=== PATIENT | female | born 1940 | race Caucasian/White ===

== ENCOUNTER 2020-03-29 10:27 | Inpatient (IN) ==
[2020-03-29] MEDS ORDERED: HYDROmorphone 2 MG/1 ML VIAL IV STA ×2 (10:30→11:37)
[2020-03-29] MEDS ORDERED: ONDANSETRON 4 MG/2 ML VIAL IV STA (10:30)
[2020-03-29 11:29] LABS: Basophils % 0.5 % (0.0-0.8); Eosinophils # 0.1 10*3/uL (0.0-0.87); Eosinophils % 1.6 % (0.00-10.9); Hematocrit 40.9 VOL% (35.7-47.0); Hemoglobin 13.3 GM/DL (12.0-16.0); Immature Granulocytes % 0.3 %; Immature Granulocytes Absolute 0.03 #; Lymphocytes # 0.7 10*3/uL (1.4-4.0); Lymphocytes % 7.7 % (21.3-54.2); Mean Corpuscular HGB Conc 32.5 GM/DL (32-36); Mean Corpuscular Volume 93.6 FL (87-102); Mean Platelet Volume 10.7 FL (9.6-12.0); Monocytes % 8.2 % (1.7-12.7); Neutrophils % 81.7 % (38.7-73.9); Platelet Count 127 T/CUMM (130-400); Red Blood Count 4.37 MC/CUMM (3.8-5.5); Red Cell Distribution Width 14.6 % (9.3-17.3); White Blood Count 8.7 T/CUMM (4-12)
[2020-03-29] MEDS ORDERED: DEXTROSE 50% 25 GM/50 ML VIAL IV PRN (11:39)
[2020-03-29] MEDS ORDERED: DOCUSATE SODIUM 100 MG CAPSULE PO PRN (11:39)
[2020-03-29] MEDS ORDERED: ONDANSETRON 4 MG/2 ML VIAL IV PRN (11:39)
[2020-03-29] MEDS ORDERED: GLUCAGON 1 MG VIAL IM PRN (11:39)
[2020-03-29 11:40] LABS: PT Patient Result 10.5 SECS (9.8-11.9); Partial Thromboplastin Time 21.4 SECS (23.9-33.8)
[2020-03-29 11:58] LABS: Albumin 3.3 G/DL (3.4-5.0); Bilirubin,Total 0.5 MG/DL (0.2-1.0); Calcium 8.4 MG/DL (8.5-10.1); Osmolality,Calculated 283.3 MOS/KG (273-304); Potassium 3.4 MMOL/L (3.5-5.1); Total Protein 6.6 G/DL (6.4-8.3)
[2020-03-29] MEDS: PANTOPRAZOLE 40 MG TABLET PO SCH (13:42)
[2020-03-29] MEDS: GABAPENTIN 300 MG CAPSULE PO SCH (20:36)
[2020-03-29] MEDS ORDERED: GABAPENTIN 300 MG CAPSULE PO SCH (21:00)
[2020-03-30 06:08] LABS: Basophils % 0.5 % (0.0-0.8); Eosinophils # 0.1 10*3/uL (0.0-0.87); Eosinophils % 2.2 % (0.00-10.9); Hematocrit 31.7 VOL% (35.7-47.0); Immature Granulocytes % 0.3 %; Immature Granulocytes Absolute 0.02 #; Lymphocytes # 0.9 10*3/uL (1.4-4.0); Mean Corpuscular HGB Conc 33.4 GM/DL (32-36); Mean Corpuscular Volume 93.2 FL (87-102); Mean Platelet Volume 10.1 FL (9.6-12.0); Monocytes % 15.1 % (1.7-12.7); Neutrophils % 67.9 % (38.7-73.9); Red Cell Distribution Width 14.8 % (9.3-17.3); White Blood Count 6.4 T/CUMM (4-12)
[2020-03-30 06:09] LABS: Hemoglobin 10.6 GM/DL (12.0-16.0); Platelet Count 195 T/CUMM (130-400)
[2020-03-30 06:24] LABS: Calcium 8.1 MG/DL (8.5-10.1); Osmolality,Calculated 283.1 MOS/KG (273-304); Potassium 3.4 MMOL/L (3.5-5.1)
[2020-03-30] MEDS: PANTOPRAZOLE 40 MG TABLET PO SCH (08:35)
[2020-03-30] MEDS: LOSARTAN 25 MG TABLET PO SCH (08:35)
[2020-03-30] MEDS ORDERED: fentaNYL 100 MCG/2 ML VIAL ONE (08:44)
[2020-03-30] MEDS ORDERED: DEXMEDETOMIDINE 200 MCG/2 ML VIAL ONE (08:47)
[2020-03-30] MEDS ORDERED: LEVOTHYROXINE 100 MCG TABLET PO SCH (09:00)
[2020-03-30] MEDS ORDERED: LEVOTHYROXINE 112 MCG TABLET PO SCH (09:00)
[2020-03-30] MEDS ORDERED: MIDAZOLAM 2 MG/2 ML VIAL ONE (09:02)
[2020-03-30] MEDS ORDERED: propofoL 200 MG/20 ML VIAL IV ONE (09:18)
[2020-03-30] MEDS ORDERED: LIDOCAINE 2% 5 ML VIAL ONE (09:18)
[2020-03-30] MEDS ORDERED: PHENYLEPHRINE 1 MG/10 ML SYRINGE IV ONE (09:23)
[2020-03-30] MEDS ORDERED: BUPIVACAINE SPINAL 0.75% 2 ML AMP SPINAL ONE (09:45)
[2020-03-30] MEDS ORDERED: ONDANSETRON 4 MG/2 ML VIAL ONE (09:45)
[2020-03-30] MEDS ORDERED: ePHEDrine 50 MG/ML VIAL ONE (09:50)
[2020-03-30] MEDS: CLINDAMYCIN INJ 900 MG in PREMIX 1 EACH IV ONE ×2 (09:54→11:09)
[2020-03-30] MEDS ORDERED: PHENYLEPHRINE 10 MG/1 ML VIAL IV ONE (09:59)
[2020-03-30] MEDS ORDERED: SODIUM CHLORIDE 0.9% 250 ML IV ONE (09:59)
[2020-03-30] MEDS ORDERED: KETOROLAC 30 MG/1 ML VIAL ONE (10:52)
[2020-03-30] MEDS ORDERED: PROMETHAZINE 25 MG/1 ML VIAL IM PRN (10:58)
[2020-03-30] MEDS ORDERED: MORPHINE 4 MG/1 ML VIAL IV PRN ×2 (10:58→11:10)
[2020-03-30] MEDS ORDERED: ACETAMINOPHEN 325 MG TABLET PO PRN (10:58)
[2020-03-30] MEDS ORDERED: MAGNESIUM HYDROXIDE SUSP 30 ML UDCUP PO PRN (10:58)
[2020-03-30] MEDS ORDERED: HYDROmorphone 2 MG/1 ML VIAL IV PRN (11:25)
[2020-03-30] MEDS ORDERED: ONDANSETRON 4 MG/2 ML VIAL IV PRN (11:25)
[2020-03-30] MEDS ORDERED: LACTATED RINGERS 500 ML IV ONE (12:17)
[2020-03-30] MEDS: LACTATED RINGERS 1,000 ML IV SCH (13:10)
[2020-03-30] MEDS: CLINDAMYCIN INJ 900 MG in PREMIX 1 EACH IV SCH ×2 (14:55→21:18)
[2020-03-30] MEDS: GABAPENTIN 300 MG CAPSULE PO SCH (21:17)
[2020-03-30] MEDS: cycloSPORINE OPH EMUL 1 VIAL BOTH EYES SCH (23:31)
[2020-03-31] MEDS: CLINDAMYCIN INJ 900 MG in PREMIX 1 EACH IV SCH (06:12)
[2020-03-31] MEDS: FLUTICASONE 50 MCG NASAL SPRAY 16 GM BOTTLE BOTH NARES SCH (08:51)
[2020-03-31] MEDS: ASPIRIN EC 81 MG TABLET PO SCH (08:51)
[2020-03-31] MEDS: PANTOPRAZOLE 40 MG TABLET PO SCH (08:51)
[2020-03-31] MEDS: LOSARTAN 25 MG TABLET PO SCH (08:51)
[2020-03-31] MEDS: cycloSPORINE OPH EMUL 1 VIAL BOTH EYES SCH ×2 (08:52→21:53)
[2020-03-31] MEDS: LACTATED RINGERS 1,000 ML IV SCH (10:31)
[2020-03-31] MEDS ORDERED: POTASSIUM CHLORIDE 20 MEQ TABLET PO ONE (11:00)
[2020-03-31 11:31] LABS: Basophils % 0.3 % (0.0-0.8); Eosinophils % 0.2 % (0.00-10.9); Hematocrit 31.3 VOL% (35.7-47.0); Immature Granulocytes % 0.4 %; Immature Granulocytes Absolute 0.04 #; Lymphocytes # 0.7 10*3/uL (1.4-4.0); Lymphocytes % 6.6 % (21.3-54.2); Mean Corpuscular HGB Conc 31.9 GM/DL (32-36); Mean Corpuscular Volume 95.4 FL (87-102); Mean Platelet Volume 9.6 FL (9.6-12.0); Monocytes % 15.2 % (1.7-12.7); Neutrophils % 77.3 % (38.7-73.9); Platelet Count 167 T/CUMM (130-400); Red Blood Count 3.28 MC/CUMM (3.8-5.5); Red Cell Distribution Width 14.9 % (9.3-17.3); White Blood Count 10.1 T/CUMM (4-12)
[2020-03-31] MEDS: ENOXAPARIN 40 MG/0.4 ML SYRINGE SUBCUT SCH (13:20)
[2020-03-31] MEDS ORDERED: TUBERCULIN SKIN TEST 0.1 ML SYRINGE INTRADERM ONE (13:22)
[2020-03-31] MEDS: diphenhydrAMINE CAP 25 MG CAPSULE PO PRN ×2 (15:09→21:50)
[2020-03-31] MEDS: GABAPENTIN 300 MG CAPSULE PO SCH (21:49)
[2020-04-01 06:09] LABS: Calcium 8.2 MG/DL (8.5-10.1); Osmolality,Calculated 284.1 MOS/KG (273-304); Potassium 3.6 MMOL/L (3.5-5.1)
[2020-04-01] MEDS: LACTATED RINGERS 1,000 ML IV SCH (06:30)
[2020-04-01] MEDS ORDERED: LEVOTHYROXINE 100 MCG TABLET PO SCH (06:30)
[2020-04-01] MEDS: ASPIRIN EC 81 MG TABLET PO SCH (08:27)
[2020-04-01] MEDS: LOSARTAN 25 MG TABLET PO SCH (08:27)
[2020-04-01] MEDS: PANTOPRAZOLE 40 MG TABLET PO SCH (08:27)
[2020-04-01] MEDS: cycloSPORINE OPH EMUL 1 VIAL BOTH EYES SCH (08:28)
[2020-04-01] MEDS: FLUTICASONE 50 MCG NASAL SPRAY 16 GM BOTTLE BOTH NARES SCH (08:28)
[2020-04-01 09:05] LABS: Basophils % 0.3 % (0.0-0.8); Eosinophils # 0.2 10*3/uL (0.0-0.87); Eosinophils % 2.5 % (0.00-10.9); Hematocrit 31.2 VOL% (35.7-47.0); Hemoglobin 9.7 GM/DL (12.0-16.0); Immature Granulocytes % 0.5 %; Immature Granulocytes Absolute 0.04 #; Lymphocytes # 0.9 10*3/uL (1.4-4.0); Lymphocytes % 10.4 % (21.3-54.2); Mean Corpuscular HGB Conc 31.1 GM/DL (32-36); Mean Corpuscular Volume 96.9 FL (87-102); Mean Platelet Volume 10.5 FL (9.6-12.0); Monocytes % 13.7 % (1.7-12.7); Neutrophils % 72.6 % (38.7-73.9); Platelet Count 169 T/CUMM (130-400); Red Blood Count 3.22 MC/CUMM (3.8-5.5); Red Cell Distribution Width 14.8 % (9.3-17.3); White Blood Count 8.7 T/CUMM (4-12)
[2020-04-01] MEDS: diphenhydrAMINE CAP 25 MG CAPSULE PO PRN (11:02)
[2020-04-01 11:12] VITALS: BP 143/77
[2020-04-01] MEDS: ENOXAPARIN 40 MG/0.4 ML SYRINGE SUBCUT SCH (14:50)
== END 2020-04-01 16:42 | disposition swing bed (61) | DRG 494 ==
LOC: EDUNIT# → EDBD → N.EDINP 10:27 → N.ED 10:27 → N.3E 12:11
PROVIDERS: ADMIT Internal Medicine; ATTEND Internal Medicine